=== PATIENT | male | born 1950 | race Asian ===

== ENCOUNTER 2023-10-17 10:20 | Emergency (ER) | payer MEDICARE ==
[~2023-10-17] VITALS: Ht 182.9 cm; Wt 74.8 kg
[2023-10-17 10:23] VITALS: BP_SYST 114; PULSE 68; RESP 18; TEMP 98.3; O2SAT 98
[2023-10-17] MEDS ORDERED: IOHEXOL 350 mgI/mL, 150 ML INFUS..BTL IV ONE (10:30)
[2023-10-17 11:01] LABS: BASOPHILS # (AUTO) 0.1 K/uL (0.0-0.2); BASOPHILS % (AUTO) 0.8 % (0.0-2.0); EOSINOPHILS # (AUTO) 0.1 K/uL (0.0-0.4); EOSINOPHILS % (AUTO) 1.3 % (0.0-4.0); HEMATOCRIT 39.7 % (36-54); HEMOGLOBIN 13.8 g/dL (14.0-18.0); LYMPHOCYTES # (AUTO) 2.4 K/uL (1.0-5.5); LYMPHOCYTES % (AUTO) 31.4 % (20.5-51.5); MEAN CORPUSCULAR HEMOGLOBIN 34 pg (27-31); MEAN CORPUSCULAR HGB CONC 35 % (32-36); MEAN CORPUSCULAR VOLUME 97 fL (79.0-98.0); MONOCYTES # (AUTO) 0.6 K/uL (0.0-1.0); MONOCYTES % (AUTO) 8.2 % (1.7-9.3); NEUTROPHILS # (AUTO) 4.4 K/uL (1.8-7.7); NEUTROPHILS % (AUTO) 58.3 % (40.0-70.0); PLATELET COUNT (AUTO) 219 K/uL (130-430); RED BLOOD CELL COUNT(AUTO) 4.08 MIL/uL (4.2-6.2); WHITE BLOOD COUNT (AUTO) 7.6 K/uL (4.8-10.8)
[2023-10-17 11:09] LABS: ANION GAP 3 (5-15); CALCIUM 8.2 mg/dL (8.4-11.0); CARBON DIOXIDE 31 mmol/L (23-29); CHLORIDE 100 mmol/L (98-107); CREATININE 0.93 mg/dL (0.55-1.30); GLUCOSE 120 mg/dL (74-106); POTASSIUM 4.8 mmol/L (3.5-5.1); SODIUM SERUM 134 mmol/L (136-145); UREA NITROGEN, BLOOD 16 mg/dL (8-21)
[2023-10-17 11:12] LABS: INR 1.1 (0.80-1.20); PROTHROMBIN TIME 11.6 SECS (9.5-12.5)
[2023-10-17 11:18] LABS: ALANINE AMINOTRANSFERASE 15 U/L (12-78); ALBUMIN 3.3 g/dL (3.4-4.8); ASPARTATE AMINOTRANSFERASE 16 U/L (10-37); BILIRUBIN,DIRECT 0.1 mg/dL (0.0-0.3); CHOLESTEROL 173 mg/dL (<200); HDL CHOLESTEROL 64 mg/dL (>45); TOTAL BILIRUBIN 0.3 mg/dL (0.0-1.0); TOTAL PROTEIN, SERUM 6.5 g/dL (6.4-8.3); TRIGLYCERIDES 82 mg/dL (30-150)
[2023-10-17 11:26] LABS: HEMOGLOBIN A1C 5.63 % (<5.7)
[2023-10-17] MEDS: NACL 0.9% 1,000 ML IV ONE (12:09)
[2023-10-17] MEDS ORDERED: PHEN100C4 PO ×2 (12:11)
[2023-10-17 14:19] VITALS: BP_SYST 127; PULSE 75; RESP 18; TEMP 97.6; O2SAT 96
== END 2023-10-17 14:18 | disposition home or self-care (01) ==
LOC: SED 10:20
DX: R55 Syncope and collapse (principal); R29.810 Facial weakness; Z79.899 Other long term (current) drug therapy
CPT/HCPCS: 99291; 70496; 96360; 71045; 80061; 80076; 80048; 83037; 85025; 85610; 85730; 86886; 86900; 86901; 84484; 36415; 93005; 70498; 70450; Q9967; J7030